=== PATIENT | female | born 1945 | race Caucasian/White ===

== ENCOUNTER 2016-09-16 11:17 | Inpatient (IN) | payer MEDICARE, OTHER ==
--- NOTE | ~2016-09-16 | DS ---
Discharge Summary [place] [id number] [place] [place]. [address] NAME: SUSY HAGEN : 49 STATUS : DIS IN PAT#: [id number] AGE: 71 ADM/REG DATE : 09/16/16 MR#: [id number] REPORT SERV DATE: 09/19/16 DICTATED BY: BEN GRANDA DATE: 09/18/16 REPORT STATUS : Draft TRANSCRIBED BY: MODL DATE: 09/18/16 ADMISSION DATE: 09/16/2016 DISCHARGE DATE: 09/18/2016 CHIEF COMPLAINT: Shortness of breath. DISCHARGING DIAGNOSES: 1. Suspected ovarian cancer. 2. Right pleural effusion. 3. Malignant ascites, status post paracentesis. 4. Hypertension. HISTORY OF PRESENT ILLNESS: Please see full H and P for details regarding initial presentation. HOSPITAL COURSE: 1. Suspected ovarian cancer. The patient presented with ascites and imaging consistent with ovarian cancer. She had a CA-125 of 5865. 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 She was seen by Dr. Olivas and Dr. Blanco from [facility]. The plan at this point is to have her follow up in our office next week for surgery planning. She feels better after ascites was drained. She opted not to have the thoracentesis at this time to see if her pleural fluid did improve after ascites was drained. 2. Hypertension. The patient is controlled on her home medications. No changes were made. PERTINENT IMAGING THIS ADMISSION: 1. CT of the abdomen and pelvis, impression, the patient has extensive ascites with omental thickening and apparent soft tissue masses in both adnexa. Findings are highly suspicious for metastatic ovarian carcinoma. 2. Moderate right pleural effusion and small left pleural effusion with consolidation at the lung bases, right greater than left. 3. Extensive fatty infiltration of the liver. 4. No adenopathy identified. 5. Multiple small bilateral nonobstructing kidney stones. Both kidneys are mildly atrophic. 6. Uterine fibroid measuring 4 cm with peripheral calcification. PROCEDURES THIS ADMISSION: Paracentesis performed on day of admission with drainage of 4.2 L. PERTINENT LABORATORY DATA: Prior to discharge, white blood cell count 11.4, hemoglobin 11.5, platelet count of 380. BMP grossly unremarkable. Time spent on discharge including discussion with Dr. Blanco as well as the patient's family is greater than 30 minutes. Discharge Summary [address] [place]. [address] NAME: SUSY HAGEN : 49 STATUS : DIS IN PAT#: [id number] AGE: 71 ADM/REG DATE : 09/16/16 MR#: [id number] REPORT SERV DATE: 09/19/16 DICTATED BY: BEN GRANDA DATE: 09/18/16 REPORT STATUS : Draft TRANSCRIBED BY: MARSHA DATE: 09/18/16 BREANNAK/MARSHA Ben Granda MD / [id number] CC: Ben Granda MD
--- NOTE | ~2016-09-16 | CN ---
Consultation Report [facility] [address] [place]. [address] NAME: SUSY WALKER : 49 STATUS : ADM IN PAT#: [id number] AGE: 71 ADM/REG DATE : 09/16/16 MR#: [id number] REPORT SERV DATE: 09/17/16 DICTATED BY: CHAI ARAIZA DATE: 09/17/16 REPORT STATUS : Draft TRANSCRIBED BY: MODL DATE: 09/17/16 CONSULTATION NOTE DATE OF CONSULTATION: 09/17/2016 REASON FOR CONSULTATION: Ascites, elevated CA-125, carcinomatosis. HISTORY OF PRESENT ILLNESS: Ms. Walker is a delightful 71-year-old female, who started having reflux symptoms several months ago. She had a history of hiatal hernia that was repaired in the past. She has been having early satiety and abdominal fullness that has been increasing in severity over the past two weeks, and she came to the ER for an evaluation. PAST MEDICAL HISTORY: Hypertension, hyperlipidemia, history of umbilical hernia repair, occasional migraines. PAST SURGICAL HISTORY: Dionna fundoplication, ventral hernia repair with mesh, and oral surgery. FAMILY HISTORY: She has a brother with colon cancer, who got chemo and surgery last year and a mother who of breast cancer at the age of 50, she was diagnosed at 49. SOCIAL HISTORY: Negative for tobacco, alcohol, or illicit drug use. HOME MEDICATIONS: Excedrin migraine, calcium carbonate, Advil, simvastatin, Zomig for migraines, and Diovan. REVIEW OF SYSTEMS: Significant for early satiety, abdominal fullness. She denies any nausea, vomiting. She is able to have bowel movements and able to tolerate food. She does have occasional shortness of breath but no chest pain. No swelling in her extremities. PHYSICAL EXAMINATION: VITAL SIGNS: She is afebrile. Her vital signs are within normal limits. HEENT: Normocephalic, atraumatic. HEART: Regular rate and rhythm. LUNGS: Clear to auscultation bilaterally. ABDOMEN: Somewhat distended with a fluid wave. She had a paracentesis yesterday, says she is much less distended than she was when she came in per her report. EXTREMITIES: No clubbing, cyanosis, or edema. PELVIC: Exam was deferred for the moment. LABORATORY EVALUATION: White count 11.4, hemoglobin is 11.5, platelets were 380. Creatinine is 0.4. Albumin is 2.1, AST and ALT within normal limits. Her CA-125 was elevated at 5865. Consultation Report [place] [id number] [facility] [address] NAME: SUSY WALKER : 49 STATUS : ADM IN PAT#: [id number] AGE: 71 ADM/REG DATE : 09/16/16 MR#: [id number] REPORT SERV DATE: 09/17/16 DICTATED BY: CHAI ARAIZA DATE: 09/17/16 REPORT STATUS : Draft TRANSCRIBED BY: MODL DATE: 09/17/16 Her CEA was 0.8. TSH was normal. IMAGING STUDIES: Her CT scan revealed diffuse omental thickening with no retroperitoneal adenopathy. There was a moderate right pleural effusion. The omental thickening extended into the abdominal wall hernia. All of her solid organs were free of metastatic disease. She did have diffuse fatty infiltration of her liver. She had soft tissue densities in the bilateral adnexa with a 4 cm uterine fibroid. ASSESSMENT AND PLAN: Going forward, I discussed that the high probability that this represented ovarian malignancy. Treatment options were discussed including primary cytoreductive surgery. Risks and benefits of that procedure were discussed in detail. This will be followed by adjuvant chemotherapy with a gulkana and taxane agent. Additional options would include neoadjuvant chemotherapy, following confirmation of malignancy and paracentesis, followed by interval debulking surgery. The patient seems to be in good physical shape. The only hesitation would be her albumin at 2.1, but I think she would tolerate a primary cytoreductive procedure. She will think about her options going forward and let us know how she wants to proceed, but our recommendation would be for primary cytoreductive surgery probably early next week. Thank you very much for this consultation. PAULO/MARSHA Chai Araiza MD / [id number]
--- NOTE | ~2016-09-16 | HP ---
History And Physical [place] [id number] [facility] [place]. [address] NAME: SUSY HAGEN : 49 STATUS : ADM IN PAT#: [id number] AGE: 71 ADM/REG DATE : 09/16/16 MR#: [id number] REPORT SERV DATE: 09/16/16 DICTATED BY: BEN GRANDA DATE: 09/16/16 REPORT STATUS : Draft TRANSCRIBED BY: MODL DATE: 09/16/16 DATE OF ADMISSION: 09/16/2016 CHIEF COMPLAINT: Shortness of breath. HISTORY OF PRESENT ILLNESS: This is a very pleasant 71-year-old female, who reports that she, several months ago, started having reflux symptoms. She has a history of a Dionna fundoplication and thought may be her hiatal hernia was recurring. Then over the past couple of months, she says she noted that she would be hungry but only able to eat a little bit before feeling like she has eaten a Thanksgiving dinner. She says she is not sure if she has lost weight but family in the room says that they can tell she has, despite her abdomen appearing more full. The patient notes that she had a fall a couple of months ago and did go to her primary care doctor and had noted rib fractures. She otherwise had started having some abdominal fullness about two weeks ago to may be a month ago. She said her abdomen will be more full which was causing her to be more short of breath. Initially she thought the shortness of breath was all part of the hiatal hernia which she has had and her initial issues with hiatal hernia which she had repaired in 2010. However last night, she would lay down to go to bed and felt like she could not breathe and had to sit up to catch her breath. This morning, she woke up, took a shower, and decided to seek medical attention. Of note, her fall involved slipping in the room. She did not pass out or have other issues. REVIEW OF SYSTEMS: Full review of systems was obtained and is negative with the exception of above HPI. PAST MEDICAL HISTORY: Includes hypertension, hyperlipidemia, history of umbilical hernia repair, history of Dionna fundoplication, and occasional migraines. FAMILY HISTORY: Includes a brother with colon cancer and mother who at age 50 of breast cancer. The patient thinks her mother was diagnosed around age 47. SOCIAL HISTORY: Denies smoking, drinking. She is retired and lives alone. HOME MEDICATIONS: Excedrin Migraine p.r.n.; calcium carbonate p.r.n.; Advil p.r.n.; simvastatin 40 mg daily; Zomig p.r.n. for migraines; and Diovan 320/25 daily. PHYSICAL EXAMINATION: VITAL SIGNS: Temperature 98.3, blood pressure 143/70 with pulse of 99, respiratory rate of 16, and saturating 97% on room air. GENERAL: This is a well-developed, well-nourished female, who is in no acute distress. She is alert and oriented x3. HEENT: Extraocular muscles are intact. Sclerae anicteric. Mucous membranes are mildly dry. LUNGS: Clear to auscultation although diminished at the right base. She does not have any wheezes, rales, or rhonchi. She has normal respiratory effort. Resting in stretcher. CARDIOVASCULAR: No murmur appreciated. Heart rate is slightly tachycardic. ABDOMEN: Distended. Nontender to palpation. History And Physical [address] [address] NAME: SUSY HAGEN : 49 STATUS : ADM IN [facility]#: [id number] AGE: 71 ADM/REG DATE : 09/16/16 MR#: [id number] REPORT SERV DATE: 09/16/16 DICTATED BY: BEN GRANDA DATE: 09/16/16 REPORT STATUS : Draft TRANSCRIBED BY: MARSHA DATE: 09/16/16 EXTREMITIES: Lower extremities are warm and well perfused with no edema. SKIN: Warm, dry, and intact. NEUROLOGIC: Cranial nerves 2 through 12 are grossly intact. Face is symmetric. Tongue is midline. Speech is fluent. LABORATORY DATA: Serum sodium 146, potassium 3.5, chloride 106, CO2 of 32, BUN 33, creatinine 0.59, glucose 105, calcium 8.6, mag 2.5, albumin 2.2, and bilirubin normal. White blood cell count 13.9, hemoglobin 13.8, platelet count of 463. IMAGING: Impression: 1. The patient has extensive ascites with omental thickening and apparent soft-tissue masses in both adnexa. The findings are highly suspicious for metastatic ovarian cancer. 2. Moderate right pleural effusion, small left pleural effusion with consolidation at the lung bases, right greater than left. 3. Extensive infiltration of the liver. 4. No adenopathy identified. 5. Multiple small bilateral nonobstructing kidney stones, both kidneys are mildly atrophic. 6. Uterine fibroid measuring 4 cm with peripheral calcification. ASSESSMENT AND PLAN: This is a 71-year-old female with abdominal imaging concerning for possible ovarian cancer. 1. Adnexal masses with ascites and omental thickening concerning for a new diagnosis of ovarian cancer. We will get a paracentesis and send fluid for cytology. I will check a CA-125. In the interim, I will ask one of our [facility] physicians to do another workup needed at this time. Suspect the patient will have a 2 midnight stay. We will admit as an inpatient. We will arrange for outpatient followup if [facility] does not see her while she is here. 2. Shortness of breath due to abdominal distention as well as pleural effusion. If the patient does not feel better after a paracentesis, we will arrange for thoracentesis prior to discharge. 3. History of hypertension. We will have the patient's home medications available with parameters. 4. History of hyperlipidemia. Continue the patient's statin. 5. Code status is full code per the patient's wishes. 6. DVT prophylaxis will be with SCDs pending possible paracentesis. BREANNAK/MAIKL Ben Granda MD / [id number] History And Physical [address] [address] NAME: SUSY HAGEN BOGDAN : 49 STATUS : ADM IN PAT#: [id number] AGE: 71 ADM/REG DATE : 09/16/16 MR#: [id number] REPORT SERV DATE: 09/16/16 DICTATED BY: BEN GRANDA DATE: 09/16/16 REPORT STATUS : Draft TRANSCRIBED BY: MODL DATE: 09/16/16 CC: Ben Granda MD
[2016-09-16 10:40] LABS: BASOPHILS 0.1 %; BASOPHILS ABSOLUTE 0.01 10/3/uL (0.0-0.16); EOSINOPHILS 1.2 %; EOSINOPHILS ABSOLUTE 0.16 10/3/uL (0.0-0.53); ER CBC TAT 0 Hrs 08 Mins; HEMATOCRIT 42.4 % (36.0-48.0); HEMOGLOBIN 13.8 g/dL (12.0-16.0); IMMATURE GRANULOCYTES 0.2 %; IMMATURE GRANULOCYTES ABSOLUTE 0.03 10/3/uL (0.0-0.11); LYMPHOCYTES 7.6 %; LYMPHOCYTES ABSOLUTE 1.05 10/3/uL (0.67-4.30); MEAN CORPUS HGB CONC 32.5 g/dL (32.0-36.0); MEAN CORPUSCULAR HEMOGLOB 27.7 pg (26.0-34.0); MEAN PLATELET VOLUME 9.1 fL (9.2-13.0); MONOCYTES 7.4 %; MONOCYTES ABSOLUTE 1.03 10/3/uL (0.21-1.20); NEUTROPHILS 83.5 %; NEUTROPHILS ABSOLUTE 11.62 10/3/uL (2.02-8.40); PLATELET COUNT 463 10/3/uL (150-400); RBC DISTRIBUTION WIDTH 16.3 % (12.0-16.0); RED CELL COUNT 4.99 10/6/uL (4.0-5.6); WHITE BLOOD CELLS 13.9 10/3/uL (4.5-10.5)
[2016-09-16 10:41] LABS: MANUAL DIFF NO %
[2016-09-16 10:56] LABS: A/G RATIO 0.5 (0.7-1.9); ALBUMIN 2.2 G/DL (3.5-5.0); ALKALINE PHOSPHATASE 118 U/L (45-117); BUN (BLOOD UREA NITROGEN) 33 MG/DL (6-23); CALCIUM, SERUM 8.6 MG/DL (8.5-10.4); CHLORIDE, SERUM 106 MMOL/L (96-112); CO2 (CARBON DIOXIDE) 32 MMOL/L (24-34); CREATININE 0.59 MG/DL (0.55-1.02); GFR AFRICAN AMERICAN 108 ML/MIN (>=60); GFR NON AFRICAN AMERICAN 94 ML/MIN (>=60); GLOBULIN 4.4 G/DL (2.5-4.1); GLUCOSE, SERUM 105 MG/DL (60-99); POTASSIUM, SERUM 3.5 MMOL/L (3.5-5.3); SGOT(AST) 22 U/L (5-40); SGPT(ALT) 23 U/L (5-65); SODIUM, SERUM 146 MMOL/L (135-148); TOTAL BILIRUBIN 0.4 MG/DL (0-1.2); TOTAL PROTEIN 6.6 G/DL (6.0-8.5)
[~2016-09-16 11:17] MED LIST: DIOVAN HC2 PO; ENTEREG12 MG PO; PRILOSEC OTC20 MG PO
[2016-09-16 13:22] LABS: ASCORBIC ACID (UR NOT ORDER) 40 (NEG); BILIRUBIN, URINE NEGATIVE (NEG); KETONE, URINE 20 MG/DL (NEG); LEUKOCYTE ESTERASE(NOT OR NEG (NEG); NITRITE (URINE) NEG (NEG); WBC (NOT ORDERED) (RFLEX) 8 (0-5)
[2016-09-16 13:23] LABS: ER URINALYSIS TAT 0 Hrs 42 Mins
[2016-09-16] MEDS ORDERED: EXCEDRIN EXTRA1 EACH PO (14:10)
[2016-09-16] MEDS ORDERED: ADVIL PO (14:12)
[2016-09-16] MEDS ORDERED: TUMS E-X750 M2 PO (14:13)
[2016-09-16] MEDS ORDERED: ZOCOR40 PO (14:20)
[2016-09-16] MEDS ORDERED: DIOVAN HCT320 MG/25 PO (14:20)
[2016-09-16] MEDS ORDERED: ZOMIG 5MG PO (14:21)
[2016-09-16 16:09] LABS: INTERNATIONAL NORMAL RATI 1.1 UNITS (-); PARTIAL THROMBO TIME 26.6 SEC (22.5-37.2); PROTIME (NOT ORD) 13.6 SEC (12.0-14.5)
[2016-09-16 16:14] LABS: ALBUMIN 2.1 G/DL (3.5-5.0); TOTAL PROTEIN 6.1 G/DL (6.0-8.5)
[2016-09-17 05:45] LABS: BASOPHILS 0 %; EOSINOPHILS ABSOLUTE 0.11 10/3/uL (0.0-0.53); HEMOGLOBIN 11.5 g/dL (12.0-16.0); IMMATURE GRANULOCYTES 0.3 %; IMMATURE GRANULOCYTES ABSOLUTE 0.03 10/3/uL (0.0-0.11); LYMPHOCYTES 9.7 %; MEAN CORPUS HGB CONC 31.1 g/dL (32.0-36.0); MEAN CORPUSCULAR HEMOGLOB 26.7 pg (26.0-34.0); MEAN CORPUSCULAR VOLUME 85.8 fL (80-100); MEAN PLATELET VOLUME 9.3 fL (9.2-13.0); MONOCYTES 7.9 %; NEUTROPHILS 81.1 %; NEUTROPHILS ABSOLUTE 9.24 10/3/uL (2.02-8.40); PLATELET COUNT 380 10/3/uL (150-400); RBC DISTRIBUTION WIDTH 16.6 % (12.0-16.0); RED CELL COUNT 4.31 10/6/uL (4.0-5.6); WHITE BLOOD CELLS 11.4 10/3/uL (4.5-10.5)
[2016-09-17 06:02] LABS: MANUAL DIFF NO %
[2016-09-17 06:26] LABS: BUN (BLOOD UREA NITROGEN) 36 MG/DL (6-23); CA 125 II 5865.8 U/ML (< 35.0); CALCIUM, SERUM 7.9 MG/DL (8.5-10.4); CHLORIDE, SERUM 111 MMOL/L (96-112); CREATININE 0.47 MG/DL (0.55-1.02); GFR AFRICAN AMERICAN 117 ML/MIN (>=60); GFR NON AFRICAN AMERICAN 101 ML/MIN (>=60); GLUCOSE, SERUM 87 MG/DL (60-99); POTASSIUM, SERUM 3.7 MMOL/L (3.5-5.3); SODIUM, SERUM 145 MMOL/L (135-148)
[2016-09-17 06:27] LABS: CEA 0.8 NG/ML; CO2 (CARBON DIOXIDE) 27 MMOL/L (24-34)
[2016-10-15] MEDS ORDERED: ANTIBIOTIC (12:21)
[2016-12-14] MEDS ORDERED: ZOCOR40 PO (02:18)
[2016-12-14] MEDS ORDERED: LOVENOX80 SC (02:18)
[2016-12-16] MEDS ORDERED: ZITHROMAX500 MG PO (16:52)
[2016-12-16] MEDS ORDERED: LEVAQUIN750 MG PO (16:53)
[2017-01-17] MEDS ORDERED: LOVENOX80 SC (22:05)
[2017-01-17] MEDS ORDERED: COMP10B PO (22:05)
[2017-01-17] MEDS ORDERED: ZOFRANODT8 PO (22:07)
[2017-01-17] MEDS ORDERED: PROBIOTIC PO (22:07)
[2017-01-17] MEDS ORDERED: VITAMIN B-12 PO (22:08)
[2017-01-17] MEDS ORDERED: ACET500CAP PO (22:09)
[2017-01-17] MEDS ORDERED: SENTAB PO (22:10)
[2017-01-17] MEDS ORDERED: TUMS E-X750 M2 PO (22:11)
[2017-01-17] MEDS ORDERED: CHEMOTHERAPY IV (22:12)
[2017-01-19] MEDS ORDERED: LOP25 PO (14:18)
[2017-01-20] MEDS ORDERED: ACET500CAP PO (22:12)
[2017-01-20] MEDS ORDERED: TUMS E-X750 M2 PO (22:13)
[2017-01-20] MEDS ORDERED: LOVENOX80 SC (22:13)
[2017-01-20] MEDS ORDERED: LOP25 PO (22:13)
[2017-01-20] MEDS ORDERED: COMP10B PO (22:14)
[2017-01-20] MEDS ORDERED: ZOFRANODT8 PO/SL (22:14)
[2017-01-20] MEDS ORDERED: SENTAB PO (22:15)
[2017-01-20] MEDS ORDERED: PROBIOTIC PO (22:16)
[2017-01-20] MEDS ORDERED: VITAMIN B-12 OTC PO (22:16)
[2017-01-20] MEDS ORDERED: CHEMOTHERAPY IV (22:17)
== END 2016-09-18 15:54 | disposition home or self-care (01) | DRG 755 ==
LOC: ER 11:17 → 4SO 14:13
PROVIDERS: Emergency Medicine; Internal Medicine; Radiology Diagnostic Radiology
PROC: 0W9G3ZX Drainage of Peritoneal Cavity, Percutaneous Approach, Diagnostic (ICD-10-PCS; principal; 2016-09-16)
DX: C56.9 Malignant neoplasm of unspecified ovary (principal); C79.9 Secondary malignant neoplasm of unspecified site; R18.0 Malignant ascites; J91.0 Malignant pleural effusion; K76.0 Fatty (change of) liver, not elsewhere classified; C78.6 Secondary malignant neoplasm of retroperitoneum and peritoneum; I10 Essential (primary) hypertension; K21.9 Gastro-esophageal reflux disease without esophagitis; Z87.81 Personal history of (healed) traumatic fracture; Z91.81 History of falling; E78.5 Hyperlipidemia, unspecified; Z98.890 Other specified postprocedural states; N20.0 Calculus of kidney; D25.9 Leiomyoma of uterus, unspecified
CPT/HCPCS: 49083; 71010; 74176; 80048; 80053; 81001; 82040; 82150; 82378; 83690; 84155; 85025; 85049; 85610; 85730; 86304; 88112; 88305; 93005; 96374; 96375; 99285; A9270-GY; J1170; J2405; J2550

== ENCOUNTER 2016-09-23 17:23 | Inpatient (IN) | payer MEDICARE, OTHER ==
--- NOTE | ~2016-09-23 | HP ---
History And Physical [place] [address] [facility] [place] [place]. [address] NAME: SUSY WALKER : 49 STATUS : DIS IN PAT#: [id number] AGE: 71 ADM/REG DATE : 09/23/16 MR#: [id number] REPORT SERV DATE: 11/02/16 DICTATED BY: MADHU MCDANIEL DATE: 11/02/16 REPORT STATUS : Draft TRANSCRIBED BY: MARSHA DATE: 11/02/16 DATE OF ADMISSION: 09/23/2016 ADMITTING DIAGNOSES: 1. Primary peritoneal carcinoma. 2. Deep venous thrombosis and pulmonary embolism. HISTORY OF PRESENT ILLNESS: Ms June Walker is a 71-year-old female, who was recently admitted to [facility], secondary to increasing abdominal pain and distention. A biopsy has been performed and was consistent with a primary peritoneal carcinoma. She was intending to have surgery and recently presented to the office with complaint of increasing shortness of breath, and pain in her lower extremities, and has now been found to have a DVT with PE. She is admitted for Lovenox. PAST MEDICAL HISTORY: Consistent with hyperlipidemia and hypertension. CURRENT MEDICATIONS: Zocor and Diovan/HCTZ. PAST SURGICAL HISTORY: Negative. SOCIAL HISTORY: Negative for any tobacco, alcohol, or illicit drug use. PHYSICAL EXAMINATION: GENERAL: She is awake, alert, and oriented x3, with intact memory, and appears to be in no apparent distress. She does have some mild shortness of breath. LUNGS: Clear to auscultation bilaterally. HEART: Regular rate and rhythm without abnormal noises. ABDOMEN: Soft, nontender, with no palpable masses. EXTREMITIES: Both upper and lower have full range of motion with some swelling in her lower extremities consistent with her DVT. NEUROLOGIC: Intact. HEENT: Reveals no gross defects. Her extraocular movements are symmetrical and intact. BACK: Straight spine without CVA tenderness. ASSESSMENT AND PLAN: In summary, this is a 71-year-old female, who was recently been diagnosed with primary peritoneal carcinoma. She now has a new DVT/PE. She is placed on to the Lovenox and the risks and benefits of Lovenox therapy was discussed and she has given her consent to proceed. MARISSA/MARSHA Madhu Mcdaniel M.D. History And Physical [address] [place] [address] NAME: SUSY WALKER : 49 STATUS : DIS IN PAT#: [id number] AGE: 71 ADM/REG DATE : 09/23/16 MR#: [id number] REPORT SERV DATE: 11/02/16 DICTATED BY: MADHU MCDANIEL DATE: 11/02/16 REPORT STATUS : Draft TRANSCRIBED BY: MAIKL DATE: 11/02/16 / [id number] CC: Madhu Mcdaniel M.D.
--- NOTE | ~2016-09-23 | OP ---
Record Of Operation [facility] [address] [place]. [address] NAME: SUSY HAGEN : 49 STATUS : ADM IN PAT#: [id number] AGE: 71 ADM/REG DATE : 09/23/16 MR#: [id number] REPORT SERV DATE: 09/25/16 DICTATED BY: ELBA PLATT DATE: 09/25/16 REPORT STATUS : Draft TRANSCRIBED BY: MODL DATE: 09/25/16 DATE OF PROCEDURE: 09/25/2016 ATTENDING SURGEON: Elba Platt MD RODENT EXTERMINATOR: None. PREPROCEDURE DIAGNOSIS: Cancer. POSTPROCEDURE DIAGNOSIS: Cancer. PROCEDURE PERFORMED: Placement of right IJ Port-A-Cath under fluoroscopic and ultrasound guidance. ANESTHETIC: MAC and local. SPECIMENS: None. ESTIMATED BLOOD LOSS: Minimal. COMPLICATIONS: None. DESCRIPTION OF PROCEDURE: The patient was brought to the operating room, placed in supine position on the operating room table. The patient had MAC anesthetic without complications. The right neck and chest were prepped and draped in sterile fashion. A time-out was performed. Identified the correct patient, procedure, and site. We began by using ultrasound to identify the right IJ vein. It was patent, compressible, and free of thrombus. We anesthetized the skin and accessed the vein under ultrasound guidance. Once we had access, a wire was passed down through the SVC and cardiac chambers into the IVC and the needle was removed. We next selected a site for the port one fingerbreadth below the clavicle. We anesthetized the skin and subcutaneous tissues at this location and made a transverse incision just inferior to the clavicle. We deepened this incision with cautery and made a pocket for the port with both electric and blunt dissection. We then tunneled the catheter from this location up to the neck entry site. We then advanced a hernandez breakaway sheath over the wire into position under fluoroscopy after which the dilator and wire were removed. We inserted the catheter into the sheath and placed it in position in the cardiac chambers. The sheath was split and removed while keeping the catheter in place. The catheter flushed and aspirated with ease and was withdrawn until the tip was at the atriocaval junction. Once the tip was in appropriate position, the port was brought up and sutured medially and laterally with interrupted Prolene suture. The catheter was trimmed. The locking mechanism was placed on a catheter and the catheter was mated to the port body. We then used a straight Farah needle to make sure the system flushed and aspirated well and it did. The catheter was then locked into position with the appropriate locking device. The port was placed in the pocket and sutured medially and laterally with the Prolenes that were priorly placed. We used a straight Farah needle again to access the port through the skin and it worked appropriately. Final x-ray was performed, demonstrating good position of Record Of Operation [address] [place]. [address] NAME: SUSY HAGEN : 49 STATUS : ADM IN PAT#: [id number] AGE: 71 ADM/REG DATE : 09/23/16 MR#: [id number] REPORT SERV DATE: 09/25/16 DICTATED BY: ELBA PLATT DATE: 09/25/16 REPORT STATUS : Draft TRANSCRIBED BY: MARSHA DATE: 09/25/16 the port and catheter with no kink in the catheter and no pneumothorax identified. The incision was then closed with interrupted Vicryl deep and subcuticular 4-0 Monocryl superficial with Dermabond on the skin. The neck entry site was closed with interrupted Monocryl and Dermabond. The patient tolerated the procedure well. She was awakened and transferred to recovery in stable condition. NEYMAR/MARSHA Elba Platt MD / [id number] CC: Madhu Blanco M.D.
[~2016-09-23 17:23] MED LIST changes: +ADVIL PO; +DIOVAN HCT320 MG/25 PO; +EXCEDRIN EXTRA1 EACH PO; +TUMS E-X750 M2 PO; +ZOCOR40 PO; +ZOMIG 5MG PO
[2016-09-23 19:08] LABS: BASOPHILS 0.1 %; BASOPHILS ABSOLUTE 0.02 10/3/uL (0.0-0.16); EOSINOPHILS 1.2 %; EOSINOPHILS ABSOLUTE 0.17 10/3/uL (0.0-0.53); HEMATOCRIT 40.5 % (36.0-48.0); HEMOGLOBIN 13.2 g/dL (12.0-16.0); IMMATURE GRANULOCYTES 0.4 %; IMMATURE GRANULOCYTES ABSOLUTE 0.05 10/3/uL (0.0-0.11); LYMPHOCYTES 10.5 %; LYMPHOCYTES ABSOLUTE 1.43 10/3/uL (0.67-4.30); MANUAL DIFF NO %; MEAN CORPUS HGB CONC 32.6 g/dL (32.0-36.0); MEAN CORPUSCULAR HEMOGLOB 27.7 pg (26.0-34.0); MEAN CORPUSCULAR VOLUME 85.1 fL (80-100); MEAN PLATELET VOLUME 8.9 fL (9.2-13.0); MONOCYTES 6.2 %; MONOCYTES ABSOLUTE 0.84 10/3/uL (0.21-1.20); NEUTROPHILS 81.6 %; PLATELET COUNT 469 10/3/uL (150-400); RBC DISTRIBUTION WIDTH 16.7 % (12.0-16.0); RED CELL COUNT 4.76 10/6/uL (4.0-5.6); WHITE BLOOD CELLS 13.6 10/3/uL (4.5-10.5)
[2016-09-23 19:11] LABS: PROTIME (NOT ORD) 13.1 SEC (12.0-14.5)
[2016-09-23 19:12] LABS: A/G RATIO 0.4 (0.7-1.9); ALBUMIN 1.9 G/DL (3.5-5.0); BUN (BLOOD UREA NITROGEN) 26 MG/DL (6-23); CALCIUM, SERUM 8.8 MG/DL (8.5-10.4); CHLORIDE, SERUM 104 MMOL/L (96-112); CO2 (CARBON DIOXIDE) 31 MMOL/L (24-34); CREATININE 0.62 MG/DL (0.55-1.02); GFR AFRICAN AMERICAN 107 ML/MIN (>=60); GFR NON AFRICAN AMERICAN 92 ML/MIN (>=60); GLOBULIN 4.4 G/DL (2.5-4.1); GLUCOSE, SERUM 99 MG/DL (60-99); SGPT(ALT) 24 U/L (5-65); SODIUM, SERUM 142 MMOL/L (135-148); TOTAL BILIRUBIN 0.3 MG/DL (0-1.2); TOTAL PROTEIN 6.3 G/DL (6.0-8.5)
[2016-09-23 19:13] LABS: ALKALINE PHOSPHATASE 137 U/L (45-117); POTASSIUM, SERUM 3.8 MMOL/L (3.5-5.3); SGOT(AST) 35 U/L (5-40)
[2016-09-25] MEDS ORDERED: LOVENOX80 SC (12:54)
[2016-09-25] MEDS ORDERED: ZOFRAN8 PO (12:55)
[2016-09-25] MEDS ORDERED: DEX4 (12:58)
[2016-09-25] MEDS ORDERED: COMP10B PO (12:59)
[2016-09-25] MEDS ORDERED: PROTONIX PO (12:59)
[2016-10-15] MEDS ORDERED: ANTIBIOTIC (12:21)
[2016-12-14] MEDS ORDERED: ZOCOR40 PO (02:18)
[2016-12-14] MEDS ORDERED: LOVENOX80 SC (02:18)
[2016-12-16] MEDS ORDERED: ZITHROMAX500 MG PO (16:52)
[2016-12-16] MEDS ORDERED: LEVAQUIN750 MG PO (16:53)
[2017-01-17] MEDS ORDERED: COMP10B PO (22:05)
[2017-01-17] MEDS ORDERED: LOVENOX80 SC (22:05)
[2017-01-17] MEDS ORDERED: ZOFRANODT8 PO (22:07)
[2017-01-17] MEDS ORDERED: PROBIOTIC PO (22:07)
[2017-01-17] MEDS ORDERED: VITAMIN B-12 PO (22:08)
[2017-01-17] MEDS ORDERED: ACET500CAP PO (22:09)
[2017-01-17] MEDS ORDERED: SENTAB PO (22:10)
[2017-01-17] MEDS ORDERED: TUMS E-X750 M2 PO (22:11)
[2017-01-17] MEDS ORDERED: CHEMOTHERAPY IV (22:12)
[2017-01-19] MEDS ORDERED: LOP25 PO (14:18)
[2017-01-20] MEDS ORDERED: ACET500CAP PO (22:12)
[2017-01-20] MEDS ORDERED: LOP25 PO (22:13)
[2017-01-20] MEDS ORDERED: LOVENOX80 SC (22:13)
[2017-01-20] MEDS ORDERED: TUMS E-X750 M2 PO (22:13)
[2017-01-20] MEDS ORDERED: ZOFRANODT8 PO/SL (22:14)
[2017-01-20] MEDS ORDERED: COMP10B PO (22:14)
[2017-01-20] MEDS ORDERED: SENTAB PO (22:15)
[2017-01-20] MEDS ORDERED: PROBIOTIC PO (22:16)
[2017-01-20] MEDS ORDERED: VITAMIN B-12 OTC PO (22:16)
[2017-01-20] MEDS ORDERED: CHEMOTHERAPY IV (22:17)
== END 2016-09-25 18:33 | disposition home or self-care (01) | DRG 374 ==
LOC: 4SO 17:23
PROVIDERS: Obstetrics & Gynecology Gynecologic Oncology; Student in an Organized Health Care Education/Training Program
PROC: 0JH60WZ Insertion of Totally Implantable Vascular Access Device into Chest Subcutaneous Tissue and Fascia, Open Approach (ICD-10-PCS; principal; 2016-09-25 07:45)
PROC: B5131ZA Fluoroscopy of Right Jugular Veins using Low Osmolar Contrast, Guidance (ICD-10-PCS; principal; 2016-09-25 07:45)
PROC: 05HM33Z Insertion of Infusion Device into Right Internal Jugular Vein, Percutaneous Approach (ICD-10-PCS; principal; 2016-09-25 07:45)
DX: C48.2 Malignant neoplasm of peritoneum, unspecified (principal); I26.99 Other pulmonary embolism without acute cor pulmonale; C56.9 Malignant neoplasm of unspecified ovary; R18.8 Other ascites; I82.409 Acute embolism and thrombosis of unspecified deep veins of unspecified lower extremity; Z79.02 Long term (current) use of antithrombotics/antiplatelets; I10 Essential (primary) hypertension; K21.9 Gastro-esophageal reflux disease without esophagitis
CPT/HCPCS: 36561; 71275; 77001; 80053; 85025; 85610; 93005; A9270-GY; C1751; C1769; J0690; J2250; J2405; J3010; Q9966; Q9967

== ENCOUNTER 2016-09-27 19:10 | Inpatient (IN) | payer MEDICARE, OTHER ==
--- NOTE | ~2016-09-27 | HP ---
History And Physical [place] [address] [place]. [address] NAME: ALEJA WALKER : 49 STATUS : DIS IN PAT#: [id number] AGE: 71 ADM/REG DATE : 09/29/16 MR#: [id number] REPORT SERV DATE: 11/02/16 DICTATED BY: MADHU MCDANIEL DATE: 11/02/16 REPORT STATUS : Draft TRANSCRIBED BY: MODTim DATE: 11/02/16 DATE OF ADMISSION: 09/27/2016 ADMITTING DIAGNOSES: 1. Primary peritoneal carcinoma. 2. New diagnosis of deep venous thrombosis/pulmonary embolism. 3. Shortness of breath. HISTORY OF PRESENT ILLNESS: Ms. Aleja Walker is a 71-year-old female who has recently been diagnosed with primary peritoneal carcinoma as well as DVT/PE. She has recently been discharged with Lovenox therapy and now presents again with increasing shortness of breath with abdominal distention. During the past several days, her abdominal ascites has increased significantly. We will plan to perform a paracentesis. She may need additional procedures pending her symptoms. PAST MEDICAL HISTORY: Consistent with hyperlipidemia and hypertension. MEDICATIONS: Current medications include Zocor/Diovan and hydrochlorothiazide. PAST SURGICAL HISTORY: Placement of a Port-A-Cath. SOCIAL HISTORY: Negative for any tobacco, alcohol, or illicit drug use. PHYSICAL EXAMINATION: GENERAL: On physical exam, she is awake, alert, and oriented x3 with intact memory and appears to be in no apparent distress. HEENT: Reveals no gross defects. Her extraocular movements are symmetrical and intact. Ears and nose are without defects or lesions. LUNGS: Clear to auscultation bilaterally. CARDIAC: Her heart has a regular rate and rhythm without abnormal noises. ABDOMEN: Distended and consistent with ascites from her primary peritoneal carcinoma. EXTREMITIES: Swelling in the lower extremities. Her upper extremities have full range of motion. No clubbing, varicosities, or edema. ASSESSMENT AND PLAN: In summary, this is a 71-year-old female who has recently been diagnosed with primary peritoneal carcinoma, who also has a new diagnosis of deep venous thrombosis/pulmonary embolism. We will perform a paracentesis and we will consider initiating her chemotherapy. The risks and benefits of these procedures have been discussed in detail, and she has given her consent to proceed. MARISSA/MARSHA Madhu Mcdaniel M.D. History And Physical [address] [address] NAME: ALEJA WALKER : 49 STATUS : DIS IN PAT#: [id number] AGE: 71 ADM/REG DATE : 09/29/16 MR#: [id number] REPORT SERV DATE: 11/02/16 DICTATED BY: MADHU MCDANIEL DATE: 11/02/16 REPORT STATUS : Draft TRANSCRIBED BY: MARSHA DATE: 11/02/16 / [id number]
[~2016-09-27 19:10] MED LIST changes: +COMP10B PO; +DEX4; +LOVENOX80 SC; +PROTONIX PO; +ZOFRAN8 PO
[2016-09-27] MEDS ORDERED: T PO (20:12)
[2016-09-27] MEDS ORDERED: [UNRECOGNIZED DRUG - OTHER] PO (20:18)
[2016-09-27 21:04] LABS: BASOPHILS 0.1 %; BASOPHILS ABSOLUTE 0.01 10/3/uL (0.0-0.16); EOSINOPHILS 1.9 %; EOSINOPHILS ABSOLUTE 0.23 10/3/uL (0.0-0.53); HEMATOCRIT 36.6 % (36.0-48.0); HEMOGLOBIN 12.2 g/dL (12.0-16.0); IMMATURE GRANULOCYTES 0.3 %; IMMATURE GRANULOCYTES ABSOLUTE 0.03 10/3/uL (0.0-0.11); LYMPHOCYTES 13.6 %; LYMPHOCYTES ABSOLUTE 1.61 10/3/uL (0.67-4.30); MEAN CORPUS HGB CONC 33.3 g/dL (32.0-36.0); MEAN CORPUSCULAR HEMOGLOB 27.9 pg (26.0-34.0); MEAN CORPUSCULAR VOLUME 83.6 fL (80-100); MEAN PLATELET VOLUME 8.7 fL (9.2-13.0); MONOCYTES 6.3 %; MONOCYTES ABSOLUTE 0.74 10/3/uL (0.21-1.20); NEUTROPHILS 77.8 %; NEUTROPHILS ABSOLUTE 9.22 10/3/uL (2.02-8.40); PLATELET COUNT 523 10/3/uL (150-400); RBC DISTRIBUTION WIDTH 16.9 % (12.0-16.0); RED CELL COUNT 4.38 10/6/uL (4.0-5.6); WHITE BLOOD CELLS 11.8 10/3/uL (4.5-10.5)
[2016-09-27 21:05] LABS: MANUAL DIFF NO %
[2016-09-27 21:18] LABS: A/G RATIO 0.5 (0.7-1.9); ALBUMIN 1.8 G/DL (3.5-5.0); CALCIUM, SERUM 8.6 MG/DL (8.5-10.4); CHLORIDE, SERUM 103 MMOL/L (96-112); CO2 (CARBON DIOXIDE) 31 MMOL/L (24-34); CREATININE 0.41 MG/DL (0.55-1.02); GFR AFRICAN AMERICAN 122 ML/MIN (>=60); GFR NON AFRICAN AMERICAN 105 ML/MIN (>=60); GLOBULIN 3.6 G/DL (2.5-4.1); GLUCOSE, SERUM 84 MG/DL (60-99); POTASSIUM, SERUM 3.4 MMOL/L (3.5-5.3); SGOT(AST) 69 U/L (5-40); SGPT(ALT) 48 U/L (5-65); SODIUM, SERUM 142 MMOL/L (135-148); TOTAL BILIRUBIN 0.2 MG/DL (0-1.2); TOTAL PROTEIN 5.4 G/DL (6.0-8.5)
[2016-09-27 21:19] LABS: ALKALINE PHOSPHATASE 228 U/L (45-117); BUN (BLOOD UREA NITROGEN) 22 MG/DL (6-23)
[2016-09-28 07:04] LABS: INTERNATIONAL NORMAL RATI 1.1 UNITS (-); PARTIAL THROMBO TIME 34.9 SEC (22.5-37.2); PROTIME (NOT ORD) 13.8 SEC (12.0-14.5)
[2016-09-29 12:08] LABS: CA 125 II 5072.5 U/ML (< 35.0)
[2016-09-29 12:27] LABS: BUN (BLOOD UREA NITROGEN) 22 MG/DL (6-23); CALCIUM, SERUM 7.8 MG/DL (8.5-10.4); CHLORIDE, SERUM 111 MMOL/L (96-112); CREATININE 0.39 MG/DL (0.55-1.02); GFR AFRICAN AMERICAN 124 ML/MIN (>=60); GFR NON AFRICAN AMERICAN 107 ML/MIN (>=60); POTASSIUM, SERUM 3.4 MMOL/L (3.5-5.3); SODIUM, SERUM 145 MMOL/L (135-148)
[2016-09-29 12:28] LABS: CO2 (CARBON DIOXIDE) 24 MMOL/L (24-34); GLUCOSE, SERUM 107 MG/DL (60-99)
[2016-09-30] MEDS ORDERED: LOVENOX80 SC (08:32)
[2016-10-15] MEDS ORDERED: ANTIBIOTIC (12:21)
[2016-12-14] MEDS ORDERED: LOVENOX80 SC (02:18)
[2016-12-14] MEDS ORDERED: ZOCOR40 PO (02:18)
[2016-12-16] MEDS ORDERED: ZITHROMAX500 MG PO (16:52)
[2016-12-16] MEDS ORDERED: LEVAQUIN750 MG PO (16:53)
[2017-01-17] MEDS ORDERED: COMP10B PO (22:05)
[2017-01-17] MEDS ORDERED: LOVENOX80 SC (22:05)
[2017-01-17] MEDS ORDERED: ZOFRANODT8 PO (22:07)
[2017-01-17] MEDS ORDERED: PROBIOTIC PO (22:07)
[2017-01-17] MEDS ORDERED: VITAMIN B-12 PO (22:08)
[2017-01-17] MEDS ORDERED: ACET500CAP PO (22:09)
[2017-01-17] MEDS ORDERED: SENTAB PO (22:10)
[2017-01-17] MEDS ORDERED: TUMS E-X750 M2 PO (22:11)
[2017-01-17] MEDS ORDERED: CHEMOTHERAPY IV (22:12)
[2017-01-19] MEDS ORDERED: LOP25 PO (14:18)
[2017-01-20] MEDS ORDERED: ACET500CAP PO (22:12)
[2017-01-20] MEDS ORDERED: LOVENOX80 SC (22:13)
[2017-01-20] MEDS ORDERED: LOP25 PO (22:13)
[2017-01-20] MEDS ORDERED: TUMS E-X750 M2 PO (22:13)
[2017-01-20] MEDS ORDERED: COMP10B PO (22:14)
[2017-01-20] MEDS ORDERED: ZOFRANODT8 PO/SL (22:14)
[2017-01-20] MEDS ORDERED: SENTAB PO (22:15)
[2017-01-20] MEDS ORDERED: VITAMIN B-12 OTC PO (22:16)
[2017-01-20] MEDS ORDERED: PROBIOTIC PO (22:16)
[2017-01-20] MEDS ORDERED: CHEMOTHERAPY IV (22:17)
== END 2016-09-30 10:35 | disposition home or self-care (01) | DRG 847 ==
LOC: 4EA 19:10
PROVIDERS: Nurse Practitioner Family; Obstetrics & Gynecology Gynecologic Oncology
PROC: 0W993ZZ Drainage of Right Pleural Cavity, Percutaneous Approach (ICD-10-PCS; principal; 2016-09-28)
PROC: 3E03305 Introduction of Other Antineoplastic into Peripheral Vein, Percutaneous Approach (ICD-10-PCS; 2016-09-29)
DX: Z51.11 Encounter for antineoplastic chemotherapy (principal); C56.9 Malignant neoplasm of unspecified ovary; J90 Pleural effusion, not elsewhere classified
CPT/HCPCS: 32555; 71010; 71020; 80048; 80053; 85025; 85049; 85610; 85730; 86304; 88112; 88305; A9270-GY; J1200; J1453; J1720; J2405; J9045; J9267

== ENCOUNTER 2016-11-13 14:02 | Inpatient (IN) | payer MEDICARE, OTHER ==
--- NOTE | ~2016-11-13 | DS ---
Discharge Summary [facility] [address] [place]. [address] NAME: SUSY HAGEN : 49 STATUS : DIS IN PAT#: [id number] AGE: 71 ADM/REG DATE : 11/13/16 MR#: [id number] REPORT SERV DATE: 11/24/16 DICTATED BY: MADHU MCDANIEL DATE: 11/23/16 REPORT STATUS : Draft TRANSCRIBED BY: MARSHA DATE: 11/23/16 Data Collection from hospitalization DISCHARGE DIAGNOSIS(ES): 1. Progressive ovarian cancer. 2. Hypertension. 3. Hyperlipidemia. 4. History of migraine headaches. 5. History of pulmonary embolism. 6. History of Clostridium difficile. CONSULTATIONS: None. PROCEDURES PERFORMED: 1. CT of the abdomen and pelvis with contrast, 11/14/2016. 2. Paracentesis with ultrasound guidance, 11/16/2016. 3. Port-A-Cath check, 11/16/2016. MEDICATIONS: Hydrochlorothiazide 25 mg daily; Zocor 40 mg at bedtime; Diovan 320 mg daily; vitamin B complex with C one daily; Lovenox 80 mg subcutaneously twice daily; Zofran 8 mg as directed; Decadron 20 mg every 28 days on the morning of the first week of chemotherapy; Compazine 10 mg twice daily, scheduled for 3 days after chemotherapy; vitamin D one daily; Tylenol one daily as needed; Tums E-X 750 to 1500 mg daily as needed; Prilosec 20 mg daily as needed; Diovan HCT one daily; and Zomig 5 mg daily as needed. CONDITION AT DISCHARGE: Upon discharge, she did appear to be doing well and had no complaints. DISPOSITION: She was discharged home to continue a regular diet with activity as directed. She was to follow up with me as scheduled. HOSPITAL COURSE: This 71-year-old female was diagnosed with a primary peritoneal carcinoma in 09/2016. She had been receiving IV chemotherapy since that time. She was receiving dose dense Taxol and carboplatin with her last dose cycle to be on 11/09/2016. Treatment thus far had been complicated with a diagnosis of a pulmonary embolism and C. diff. She presented to the office on the day of admission with complaints of weakness, fatigue, and severe diarrhea. She stated that her diarrhea began on Wednesday. The patient had a history of C. diff in which she completed a 21 day course of vancomycin around the end of October. The patient denied any fever, chills, or any nausea or vomiting. She was however admitted for further evaluation and treatment. Upon admission to the hospital, she had been placed on a regular diet. She was begun on electrolyte protocol. She had also been placed on Lovenox at 1 mg/kg subcutaneously twice daily, Neupogen at 480 mcg subcutaneously daily, morphine 2 to 6 mg IV every two hours as needed for pain, Zofran 8 mg IV every six hours as needed for nausea. Her blood pressure medications were placed on hold. She was also begun on IV fluids with normal saline at 250 mL/h x2 hours, then it was to be decreased to 125 mL/h thereafter. Information collected by: Brigido BradfordISanketTSanket Discharge Summary [address] [address] NAME: SUSY HAGEN : 49 STATUS : DIS IN PAT#: [id number] AGE: 71 ADM/REG DATE : 11/13/16 MR#: [id number] REPORT SERV DATE: 11/24/16 DICTATED BY: MADHU MCDANIEL DATE: 11/23/16 REPORT STATUS : Draft TRANSCRIBED BY: MODL DATE: 11/23/16 I submit the above information as my discharge summary. DENISE/MARSHA Madhu Mcdaniel M.D. / [id number] CC: Alejandra Prieto M.D.
--- NOTE | ~2016-11-13 | HP ---
History And Physical [id number] [place]. [address] NAME: SUSY WALKER : 49 STATUS : ADM IN [facility]#: [id number] AGE: 71 ADM/REG DATE : 11/13/16 MR#: [id number] REPORT SERV DATE: 11/13/16 DICTATED BY: EVE GARCIA DATE: 11/13/16 REPORT STATUS : Draft TRANSCRIBED BY: MODL DATE: 11/13/16 DATE OF ADMISSION: 11/13/2016 HISTORY OF PRESENT ILLNESS: Ms. Walker is a 71-year-old female, who was diagnosed with a primary peritoneal carcinoma in 09/2016. She has been receiving IV chemotherapy since that time. She was receiving dose-dense Taxol and carboplatin with her last dose being cycle 2B on 11/09. Treatment thus far has been complicated with a diagnosis of a pulmonary embolism and C diff. The patient presented to the office today with complaints of weakness, fatigue, and severe diarrhea. States that her diarrhea started on Wednesday. The patient has a history of C diff in which she completed a 21-day course of vancomycin around the end of October. The patient denies any fever, chills, or any nausea or vomiting. PAST MEDICAL HISTORY: Significant for hypertension, hyperlipidemia, migraine headache, C diff, and pulmonary embolism. PAST SURGICAL HISTORY: Previous benign breast biopsy, umbilical hernia repair, and oral surgery. SOCIAL HISTORY: Denies any tobacco, alcohol, or illicit drug use. FAMILY HISTORY: Mother diagnosed with breast cancer at age 48. Brother diagnosed with colon cancer at age 58. REVIEW OF SYSTEMS: As indicated in the HPI. PHYSICAL EXAMINATION: VITAL SIGNS: Her blood pressure was 78/54, pulse 105, temperature is 97.6. GENERAL: She is alert and oriented x3. No acute distress. She does appear weak and frail. LUNGS: Clear to auscultation bilaterally. HEART: Regular rate and rhythm. ABDOMEN: Soft, nontender, and distended. EXTREMITIES: Bilateral lower extremities with no swelling. Pulses +2. ASSESSMENT AND PLAN: In summary, this is a 71-year-old female, who is diagnosed with end- stage primary peritoneal carcinoma, receiving IV chemotherapy with former dose-dense Taxol and carboplatin. The patient now with weakness, hypotension, and diarrhea. We will admit the patient. Obtain a stool sample to check for recurrence of her C diff. Also give an IV fluid bolus, and the patient was found to be neutropenic in our office with an ANC of 700. We will also start on Neupogen. Further recommendations to follow. The above tests are completed. EVERARDO/MARSHA History And Physical [address] [address] NAME: SUSY WALKER : 49 STATUS : ADM IN PAT#: [id number] AGE: 71 ADM/REG DATE : 11/13/16 MR#: [id number] REPORT SERV DATE: 11/13/16 DICTATED BY: EVE GARCIA DATE: 11/13/16 REPORT STATUS : Draft TRANSCRIBED BY: MARSHA DATE: 11/13/16 Eve Garcia NP / [id number] CC: Alejandra Prieto M.D.
[~2016-11-13 14:02] MED LIST changes: +ANTIBIOTIC; +T PO; +[UNRECOGNIZED DRUG - OTHER] PO
[2016-11-13] MEDS ORDERED: *UNABLE1 (15:31)
[2016-11-13 15:37] LABS: HEMATOCRIT 34.6 % (36.0-48.0); HEMOGLOBIN 11.7 g/dL (12.0-16.0); MEAN CORPUS HGB CONC 33.8 g/dL (32.0-36.0); MEAN CORPUSCULAR HEMOGLOB 28.7 pg (26.0-34.0); MEAN CORPUSCULAR VOLUME 84.8 fL (80-100); MEAN PLATELET VOLUME 9.3 fL (9.2-13.0); PLATELET COUNT 187 10/3/uL (150-400); RBC DISTRIBUTION WIDTH 17.9 % (12.0-16.0); RED CELL COUNT 4.08 10/6/uL (4.0-5.6)
[2016-11-13 15:51] LABS: A/G RATIO 0.6 (0.7-1.9); ALBUMIN 1.9 G/DL (3.5-5.0); CALCIUM, SERUM 8.3 MG/DL (8.5-10.4); CHLORIDE, SERUM 104 MMOL/L (96-112); CO2 (CARBON DIOXIDE) 28 MMOL/L (24-34); CREATININE 0.69 MG/DL (0.55-1.02); GFR AFRICAN AMERICAN 103 ML/MIN (>=60); GFR NON AFRICAN AMERICAN 89 ML/MIN (>=60); GLOBULIN 3.3 G/DL (2.5-4.1); GLUCOSE, SERUM 92 MG/DL (60-99); POTASSIUM, SERUM 3.8 MMOL/L (3.5-5.3); SGOT(AST) 47 U/L (5-40); SGPT(ALT) 60 U/L (5-65); SODIUM, SERUM 140 MMOL/L (135-148); TOTAL BILIRUBIN 0.3 MG/DL (0-1.2); TOTAL PROTEIN 5.2 G/DL (6.0-8.5)
[2016-11-13 15:53] LABS: MANUAL DIFF YES %; WHITE BLOOD CELLS 2.1 10/3/uL (4.5-10.5)
[2016-11-13 15:55] LABS: ALKALINE PHOSPHATASE 154 U/L (45-117); BUN (BLOOD UREA NITROGEN) 35 MG/DL (6-23)
[2016-11-13 16:11] LABS: BAND NEUTROPHILS 1 %; LYMPHOCYTES 54 %; LYMPHOCYTES ABSOLUTE (CALC) 1.13 10/3/uL (0.67-4.30); MONOCYTES 2 %; MONOCYTES ABSOLUTE (CALC) 0.04 10/3/uL (0.21-1.20); NEUTROPHILS ABSOLUTE (CALC) 0.92 10/3/uL (2.02-8.40); SEGMENTED NEUTROPHIL (0) 43 %; TOTAL NUCLEATED CELLS 100
[2016-11-13 16:12] LABS: ANISOCYTOSIS 1+ (5-10/OIF) (0-5/OIF); MACROCYTES 1+ (5-10/OIF) (0-5/OIF); PLATELET ESTIMATE ADQ (ADEQUATE); SCHISTOCYTES FEW (3-10/OIF)
[2016-11-13 16:13] LABS: OVALOCYTES 1+ (3-10/OIF) (0-2/OIF)
[2016-11-13 16:14] LABS: HELMET CELLS FEW (3-10/OIF)
[2016-11-13] MEDS ORDERED: LOVENOX80 SC (22:38)
[2016-11-13] MEDS ORDERED: ZOFRAN8 PO (22:39)
[2016-11-13] MEDS ORDERED: DEX4 PO (22:41)
[2016-11-13] MEDS ORDERED: CHEMOTHERAPY IV (22:42)
[2016-11-13] MEDS ORDERED: VITAMIN B PO (22:42)
[2016-11-13] MEDS ORDERED: COMP10B PO (22:42)
[2016-11-13] MEDS ORDERED: TYLENOL PO (22:43)
[2016-11-13] MEDS ORDERED: PRILO PO (22:43)
[2016-11-13] MEDS ORDERED: TUMS E-X750 M2 PO (22:43)
[2016-11-13] MEDS ORDERED: ZOCOR40 PO (22:44)
[2016-11-13] MEDS ORDERED: DIOVAN HCT320 MG/25 PO (22:44)
[2016-11-13] MEDS ORDERED: ZOMIG 5MG PO (22:45)
[2016-11-14 06:14] LABS: HEMATOCRIT 29.4 % (36.0-48.0); HEMOGLOBIN 10.2 g/dL (12.0-16.0); MEAN CORPUS HGB CONC 34.7 g/dL (32.0-36.0); MEAN CORPUSCULAR HEMOGLOB 29.6 pg (26.0-34.0); MEAN CORPUSCULAR VOLUME 85.2 fL (80-100); MEAN PLATELET VOLUME 8.9 fL (9.2-13.0); PLATELET COUNT 100 10/3/uL (150-400); RBC DISTRIBUTION WIDTH 18.1 % (12.0-16.0); RED CELL COUNT 3.45 10/6/uL (4.0-5.6); WHITE BLOOD CELLS 2.3 10/3/uL (4.5-10.5)
[2016-11-14 06:18] LABS: MANUAL DIFF YES %
[2016-11-14 06:46] LABS: A/G RATIO 0.5 (0.7-1.9); ALBUMIN 1.6 G/DL (3.5-5.0); BUN (BLOOD UREA NITROGEN) 36 MG/DL (6-23); CALCIUM, SERUM 7.7 MG/DL (8.5-10.4); CHLORIDE, SERUM 109 MMOL/L (96-112); CO2 (CARBON DIOXIDE) 24 MMOL/L (24-34); CREATININE 0.52 MG/DL (0.55-1.02); GFR AFRICAN AMERICAN 113 ML/MIN (>=60); GFR NON AFRICAN AMERICAN 97 ML/MIN (>=60); GLUCOSE, SERUM 88 MG/DL (60-99); POTASSIUM, SERUM 3.5 MMOL/L (3.5-5.3); SGOT(AST) 32 U/L (5-40); SGPT(ALT) 50 U/L (5-65); SODIUM, SERUM 143 MMOL/L (135-148); TOTAL BILIRUBIN 0.2 MG/DL (0-1.2); TOTAL PROTEIN 4.6 G/DL (6.0-8.5)
[2016-11-14 06:47] LABS: ALKALINE PHOSPHATASE 131 U/L (45-117)
[2016-11-14 08:09] LABS: ANISOCYTOSIS 1+ (5-10/OIF) (0-5/OIF); BAND NEUTROPHILS 20 %; LYMPHOCYTES 57 %; LYMPHOCYTES ABSOLUTE (CALC) 1.31 10/3/uL (0.67-4.30); MONOCYTES 3 %; MONOCYTES ABSOLUTE (CALC) 0.07 10/3/uL (0.21-1.20); NEUTROPHILS ABSOLUTE (CALC) 0.92 10/3/uL (2.02-8.40); PLATELET ESTIMATE DEC (ADEQUATE); SEGMENTED NEUTROPHIL (0) 20 %; TOTAL NUCLEATED CELLS 100
[2016-11-14 08:10] LABS: MICROCYTES 1+ (5-10/OIF) (0-5/OIF)
[2016-11-15 04:16] LABS: HEMOGLOBIN 11.2 g/dL (12.0-16.0); MEAN CORPUSCULAR HEMOGLOB 28.4 pg (26.0-34.0); MEAN CORPUSCULAR VOLUME 85.8 fL (80-100); MEAN PLATELET VOLUME 9.7 fL (9.2-13.0); PLATELET COUNT 95 10/3/uL (150-400); RBC DISTRIBUTION WIDTH 17.8 % (12.0-16.0); RED CELL COUNT 3.95 10/6/uL (4.0-5.6)
[2016-11-15 04:17] LABS: HEMATOCRIT 33.9 % (36.0-48.0); MANUAL DIFF YES %; WHITE BLOOD CELLS 3.5 10/3/uL (4.5-10.5)
[2016-11-15 04:32] LABS: A/G RATIO 0.5 (0.7-1.9); ALBUMIN 1.8 G/DL (3.5-5.0); CALCIUM, SERUM 7.6 MG/DL (8.5-10.4); CHLORIDE, SERUM 106 MMOL/L (96-112); CO2 (CARBON DIOXIDE) 25 MMOL/L (24-34); GFR AFRICAN AMERICAN 108 ML/MIN (>=60); GFR NON AFRICAN AMERICAN 93 ML/MIN (>=60); GLOBULIN 3.4 G/DL (2.5-4.1); GLUCOSE, SERUM 94 MG/DL (60-99); SGOT(AST) 38 U/L (5-40); SGPT(ALT) 59 U/L (5-65); SODIUM, SERUM 139 MMOL/L (135-148); TOTAL BILIRUBIN 0.2 MG/DL (0-1.2); TOTAL PROTEIN 5.2 G/DL (6.0-8.5)
[2016-11-15 04:39] LABS: ALKALINE PHOSPHATASE 177 U/L (45-117); BUN (BLOOD UREA NITROGEN) 28 MG/DL (6-23); POTASSIUM, SERUM 2.9 MMOL/L (3.5-5.3)
[2016-11-15 05:22] LABS: ANISOCYTOSIS 1+ (5-10/OIF) (0-5/OIF); BAND NEUTROPHILS 21 %; IMMATURE GRANS ABSOLUTE (CALC) 0.04 10/3/uL (0.0-0.11); LYMPHOCYTES 44 %; LYMPHOCYTES ABSOLUTE (CALC) 1.54 10/3/uL (0.67-4.30); METAMYELOCYTES 1 %; MONOCYTES 2 %; MONOCYTES ABSOLUTE (CALC) 0.07 10/3/uL (0.21-1.20); NEUTROPHILS ABSOLUTE (CALC) 1.86 10/3/uL (2.02-8.40); PLATELET ESTIMATE DEC (ADEQUATE); SEGMENTED NEUTROPHIL (0) 32 %; TOTAL NUCLEATED CELLS 100
[2016-11-16 04:33] LABS: HEMOGLOBIN 10.4 g/dL (12.0-16.0); MEAN CORPUSCULAR HEMOGLOB 29.5 pg (26.0-34.0); MEAN CORPUSCULAR VOLUME 84.4 fL (80-100); MEAN PLATELET VOLUME 9.6 fL (9.2-13.0); RBC DISTRIBUTION WIDTH 17.9 % (12.0-16.0); RED CELL COUNT 3.53 10/6/uL (4.0-5.6); WHITE BLOOD CELLS 2.9 10/3/uL (4.5-10.5)
[2016-11-16 04:36] LABS: HEMATOCRIT 29.8 % (36.0-48.0); MANUAL DIFF YES %; MEAN CORPUS HGB CONC 34.9 g/dL (32.0-36.0); PLATELET COUNT 56 10/3/uL (150-400)
[2016-11-16 04:37] LABS: PARTIAL THROMBO TIME 31.3 SEC (22.5-37.2); PROTIME (NOT ORD) 12.7 SEC (12.0-14.5)
[2016-11-16 04:48] LABS: A/G RATIO 0.5 (0.7-1.9); ALBUMIN 1.7 G/DL (3.5-5.0); BUN (BLOOD UREA NITROGEN) 25 MG/DL (6-23); CALCIUM, SERUM 7.9 MG/DL (8.5-10.4); CHLORIDE, SERUM 112 MMOL/L (96-112); CO2 (CARBON DIOXIDE) 22 MMOL/L (24-34); CREATININE 0.43 MG/DL (0.55-1.02); GFR AFRICAN AMERICAN 120 ML/MIN (>=60); GFR NON AFRICAN AMERICAN 104 ML/MIN (>=60); GLOBULIN 3.1 G/DL (2.5-4.1); GLUCOSE, SERUM 86 MG/DL (60-99); POTASSIUM, SERUM 3.3 MMOL/L (3.5-5.3); SGOT(AST) 29 U/L (5-40); SGPT(ALT) 48 U/L (5-65); SODIUM, SERUM 144 MMOL/L (135-148); TOTAL BILIRUBIN 0.1 MG/DL (0-1.2); TOTAL PROTEIN 4.8 G/DL (6.0-8.5)
[2016-11-16 04:49] LABS: ALKALINE PHOSPHATASE 162 U/L (45-117)
[2016-11-16 05:35] LABS: BAND NEUTROPHILS 8 %; LYMPHOCYTES 46 %; LYMPHOCYTES ABSOLUTE (CALC) 1.33 10/3/uL (0.67-4.30); MONOCYTES 4 %; MONOCYTES ABSOLUTE (CALC) 0.12 10/3/uL (0.21-1.20); NEUTROPHILS ABSOLUTE (CALC) 1.45 10/3/uL (2.02-8.40); SEGMENTED NEUTROPHIL (0) 42 %; TOTAL NUCLEATED CELLS 100
[2016-11-16 05:36] LABS: ANISOCYTOSIS 1+ (5-10/OIF) (0-5/OIF); PLATELET ESTIMATE DEC (ADEQUATE); SPHEROCYTES OCC (0-2/OIF)
[2016-11-17 06:47] LABS: HEMATOCRIT 28.3 % (36.0-48.0); HEMOGLOBIN 9.7 g/dL (12.0-16.0); MEAN CORPUS HGB CONC 34.3 g/dL (32.0-36.0); MEAN CORPUSCULAR VOLUME 84.5 fL (80-100); MEAN PLATELET VOLUME 9.5 fL (9.2-13.0); PLATELET COUNT 41 10/3/uL (150-400); RBC DISTRIBUTION WIDTH 17.8 % (12.0-16.0); RED CELL COUNT 3.35 10/6/uL (4.0-5.6); WHITE BLOOD CELLS 5.1 10/3/uL (4.5-10.5)
[2016-11-17 06:48] LABS: MANUAL DIFF YES %
[2016-11-17 07:06] LABS: A/G RATIO 0.6 (0.7-1.9); ALBUMIN 1.4 G/DL (3.5-5.0); ALKALINE PHOSPHATASE 126 U/L (45-117); BUN (BLOOD UREA NITROGEN) 20 MG/DL (6-23); CALCIUM, SERUM 7.5 MG/DL (8.5-10.4); CHLORIDE, SERUM 113 MMOL/L (96-112); CO2 (CARBON DIOXIDE) 27 MMOL/L (24-34); GFR AFRICAN AMERICAN 123 ML/MIN (>=60); GFR NON AFRICAN AMERICAN 106 ML/MIN (>=60); GLOBULIN 2.4 G/DL (2.5-4.1); GLUCOSE, SERUM 87 MG/DL (60-99); POTASSIUM, SERUM 3.2 MMOL/L (3.5-5.3); SGOT(AST) 18 U/L (5-40); SGPT(ALT) 33 U/L (5-65); SODIUM, SERUM 144 MMOL/L (135-148); TOTAL BILIRUBIN 0.2 MG/DL (0-1.2); TOTAL PROTEIN 3.8 G/DL (6.0-8.5)
[2016-11-17 07:22] LABS: SEGMENTED NEUTROPHIL (0) 34 %; TOTAL NUCLEATED CELLS 100
[2016-11-17 07:23] LABS: ANISOCYTOSIS 1+ (5-10/OIF) (0-5/OIF); BAND NEUTROPHILS 27 %; IMMATURE GRANS ABSOLUTE (CALC) 0.26 10/3/uL (0.0-0.11); LYMPHOCYTES 24 %; LYMPHOCYTES ABSOLUTE (CALC) 1.22 10/3/uL (0.67-4.30); METAMYELOCYTES 5 %; MONOCYTES 10 %; MONOCYTES ABSOLUTE (CALC) 0.51 10/3/uL (0.21-1.20); NEUTROPHILS ABSOLUTE (CALC) 3.11 10/3/uL (2.02-8.40); PLATELET ESTIMATE DEC (ADEQUATE); TOXIC GRANULATION 1+
[2016-12-14] MEDS ORDERED: ZOCOR40 PO (02:18)
[2016-12-14] MEDS ORDERED: LOVENOX80 SC (02:18)
[2016-12-16] MEDS ORDERED: ZITHROMAX500 MG PO (16:52)
[2016-12-16] MEDS ORDERED: LEVAQUIN750 MG PO (16:53)
[2017-01-17] MEDS ORDERED: LOVENOX80 SC (22:05)
[2017-01-17] MEDS ORDERED: COMP10B PO (22:05)
[2017-01-17] MEDS ORDERED: PROBIOTIC PO (22:07)
[2017-01-17] MEDS ORDERED: ZOFRANODT8 PO (22:07)
[2017-01-17] MEDS ORDERED: VITAMIN B-12 PO (22:08)
[2017-01-17] MEDS ORDERED: ACET500CAP PO (22:09)
[2017-01-17] MEDS ORDERED: SENTAB PO (22:10)
[2017-01-17] MEDS ORDERED: TUMS E-X750 M2 PO (22:11)
[2017-01-17] MEDS ORDERED: CHEMOTHERAPY IV (22:12)
[2017-01-19] MEDS ORDERED: LOP25 PO (14:18)
[2017-01-20] MEDS ORDERED: ACET500CAP PO (22:12)
[2017-01-20] MEDS ORDERED: LOVENOX80 SC (22:13)
[2017-01-20] MEDS ORDERED: LOP25 PO (22:13)
[2017-01-20] MEDS ORDERED: TUMS E-X750 M2 PO (22:13)
[2017-01-20] MEDS ORDERED: COMP10B PO (22:14)
[2017-01-20] MEDS ORDERED: ZOFRANODT8 PO/SL (22:14)
[2017-01-20] MEDS ORDERED: SENTAB PO (22:15)
[2017-01-20] MEDS ORDERED: VITAMIN B-12 OTC PO (22:16)
[2017-01-20] MEDS ORDERED: PROBIOTIC PO (22:16)
[2017-01-20] MEDS ORDERED: CHEMOTHERAPY IV (22:17)
== END 2016-11-17 09:45 | disposition home or self-care (01) | DRG 392 ==
LOC: 4EA 14:02
PROVIDERS: Obstetrics & Gynecology Gynecologic Oncology; Radiology Diagnostic Radiology
PROC: 0W9G3ZZ Drainage of Peritoneal Cavity, Percutaneous Approach (ICD-10-PCS; principal; 2016-11-16)
DX: R19.7 Diarrhea, unspecified (principal); D70.9 Neutropenia, unspecified; C48.1 Malignant neoplasm of specified parts of peritoneum; I10 Essential (primary) hypertension; E78.5 Hyperlipidemia, unspecified
CPT/HCPCS: 36598; 49083; 74177; 80053; 85025; 85610; 85730; 87493; 87493-59; A9270-GY; J1447; J2405; J2997; Q9967

== ENCOUNTER 2016-11-22 11:55 | Inpatient (IN) | payer MEDICARE, OTHER ==
--- NOTE | ~2016-11-22 | HP ---
History And Physical [address] [place]. [address] NAME: SUSY WALKER : 49 STATUS : DIS IN PAT#: [id number] AGE: 71 ADM/REG DATE : 11/23/16 MR#: [id number] REPORT SERV DATE: 11/24/16 DICTATED BY: EVE GARCIA DATE: 11/24/16 REPORT STATUS : Draft TRANSCRIBED BY: MODL DATE: 11/24/16 DATE OF ADMISSION: 11/22/2016 HISTORY OF PRESENT ILLNESS: Ms. Walker is a 71-year-old female, who was diagnosed with primary peritoneal carcinoma III in 09/2016. She has been receiving IV chemotherapy since that time. She is receiving dose dense Taxol and carboplatin with her last dose being cycle 2B on 11/09/2016. Her treatment thus far has been complicated with a diagnosis of pulmonary embolism and C diff. The patient called on-call physician with complaints of increasing abdominal discomfort and distention, weakness, fatigue, nausea, and decreased appetite. The patient was recently discharged from [facility] on 11/17/2016. States she was feeling well and then starting Wednesday evening, she began having worsening symptoms. PAST MEDICAL HISTORY: Significant for hypertension, hyperlipidemia, migraine headaches, C diff, and pulmonary embolism. PAST SURGICAL HISTORY: Previous benign breast biopsy, umbilical hernia repair, and oral surgery. SOCIAL HISTORY: Denies any tobacco, alcohol, or illicit drug use. FAMILY HISTORY: Mother diagnosed with breast cancer at age 48. Brother diagnosed with colon cancer at age 58. REVIEW OF SYSTEMS: As indicated in HPI. PHYSICAL EXAMINATION: GENERAL: She is alert and oriented x3, in no acute distress. She does appear weak and frail. LUNGS: Clear to auscultation bilaterally. HEART: Regular rate and rhythm. ABDOMEN: Soft, nontender, and is distended. EXTREMITIES: Bilateral lower extremities with no swelling and pulses +2. ASSESSMENT AND PLAN: In summary, this is a 71-year-old female, who was diagnosed with primary peritoneal carcinoma, receiving IV chemotherapy. She now has recurrent abdominal distention and discomfort. We will set up for ultrasound-guided paracentesis. Discussed the patient's current chemotherapy and we will be changing her chemotherapy regimen to topotecan. We will try to give her her first dose inhouse after her paracentesis. VAB/MAIKL Eve Garcia NP History And Physical [address] [address] NAME: SUSY WALKER : 49 STATUS : DIS IN PAT#: [id number] AGE: 71 ADM/REG DATE : 11/23/16 MR#: [id number] REPORT SERV DATE: 11/24/16 DICTATED BY: EVE GARCIA DATE: 11/24/16 REPORT STATUS : Draft TRANSCRIBED BY: MODL DATE: 11/24/16 / [id number] CC: MD Willi Geiger M.D.
[~2016-11-22 11:55] MED LIST changes: +*UNABLE1; +CHEMOTHERAPY IV; +DEX4 PO; +PRILO PO; +TYLENOL PO; +VITAMIN B PO
[2016-11-23 02:14] LABS: HEMATOCRIT 30.9 % (36.0-48.0); HEMOGLOBIN 10.5 g/dL (12.0-16.0); MEAN CORPUSCULAR HEMOGLOB 28.5 pg (26.0-34.0); MEAN CORPUSCULAR VOLUME 83.7 fL (80-100); MEAN PLATELET VOLUME 9.5 fL (9.2-13.0); RBC DISTRIBUTION WIDTH 18.8 % (12.0-16.0); RED CELL COUNT 3.69 10/6/uL (4.0-5.6)
[2016-11-23 02:15] LABS: INTERNATIONAL NORMAL RATI 1.1 UNITS (-); PARTIAL THROMBO TIME 29.3 SEC (22.5-37.2); PROTIME (NOT ORD) 13.6 SEC (12.0-14.5)
[2016-11-23 02:21] LABS: CALCIUM, SERUM 8.4 MG/DL (8.5-10.4); CHLORIDE, SERUM 105 MMOL/L (96-112); CO2 (CARBON DIOXIDE) 30 MMOL/L (24-34); CREATININE 0.75 MG/DL (0.55-1.02); GFR AFRICAN AMERICAN 94 ML/MIN (>=60); GFR NON AFRICAN AMERICAN 81 ML/MIN (>=60); POTASSIUM, SERUM 3.8 MMOL/L (3.5-5.3); SODIUM, SERUM 145 MMOL/L (135-148)
[2016-11-23 02:22] LABS: BUN (BLOOD UREA NITROGEN) 34 MG/DL (6-23); GLUCOSE, SERUM 134 MG/DL (60-99)
[2016-11-23 02:29] LABS: ANISOCYTOSIS 1+ (5-10/OIF) (0-5/OIF); BAND NEUTROPHILS 20 %; LYMPHOCYTES 5 %; METAMYELOCYTES 6 %; MYELOCYTES 1 %; PLATELET ESTIMATE ADQ (ADEQUATE); SEGMENTED NEUTROPHIL (0) 68 %; TOTAL NUCLEATED CELLS 100; TOXIC GRANULATION 1+
[2016-11-23 02:32] LABS: PLATELET COUNT 366 10/3/uL (150-400); WHITE BLOOD CELLS 24.1 10/3/uL (4.5-10.5)
[2016-11-23 02:33] LABS: MANUAL DIFF YES %
[2016-11-23] MEDS ORDERED: T PO (08:09)
[2016-11-23 10:33] LABS: ALBUMIN 1.3 G/DL (3.5-5.0); TOTAL PROTEIN 4.2 G/DL (6.0-8.5)
[2016-11-23 11:16] LABS: INTERNATIONAL NORMAL RATI 1.1 UNITS (-); PARTIAL THROMBO TIME 26.8 SEC (22.5-37.2); PROTIME (NOT ORD) 13.8 SEC (12.0-14.5)
[2016-11-23 14:07] LABS: CA 125 II 7041.2 U/ML (< 35.0)
[2016-11-23 14:22] LABS: BUN (BLOOD UREA NITROGEN) 33 MG/DL (6-23); CALCIUM, SERUM 8.5 MG/DL (8.5-10.4); CHLORIDE, SERUM 107 MMOL/L (96-112); CO2 (CARBON DIOXIDE) 31 MMOL/L (24-34); CREATININE 0.55 MG/DL (0.55-1.02); GFR AFRICAN AMERICAN 111 ML/MIN (>=60); GFR NON AFRICAN AMERICAN 96 ML/MIN (>=60); GLUCOSE, SERUM 84 MG/DL (60-99); POTASSIUM, SERUM 3.8 MMOL/L (3.5-5.3); SODIUM, SERUM 146 MMOL/L (135-148)
[2016-11-23 14:25] LABS: HEMATOCRIT 29.7 % (36.0-48.0); HEMOGLOBIN 9.8 g/dL (12.0-16.0); MEAN CORPUSCULAR HEMOGLOB 28.2 pg (26.0-34.0); MEAN CORPUSCULAR VOLUME 85.3 fL (80-100); MEAN PLATELET VOLUME 10.1 fL (9.2-13.0); PLATELET COUNT 354 10/3/uL (150-400); RED CELL COUNT 3.48 10/6/uL (4.0-5.6); WHITE BLOOD CELLS 22.3 10/3/uL (4.5-10.5)
[2016-11-23 14:27] LABS: MANUAL DIFF YES %
[2016-11-23 15:48] LABS: BAND NEUTROPHILS 14 %; LYMPHOCYTES 3 %; METAMYELOCYTES 4 %; MONOCYTES 6 %; SEGMENTED NEUTROPHIL (0) 73 %; TOTAL NUCLEATED CELLS 100
[2016-11-23 15:55] LABS: ANISOCYTOSIS 1+ (5-10/OIF) (0-5/OIF)
[2016-11-23 18:00] LABS: ASCORBIC ACID (UR NOT ORDER) NEG (NEG); BILIRUBIN, URINE NEGATIVE (NEG); KETONE, URINE NEGATIVE (NEG); WBC (NOT ORDERED) (RFLEX) 16 (0-5)
[2016-11-23 18:04] LABS: LEUKOCYTE ESTERASE(NOT OR TRACE (NEG)
[2016-11-24 06:17] LABS: INTERNATIONAL NORMAL RATI 1.2 UNITS (-); PARTIAL THROMBO TIME 32.4 SEC (22.5-37.2)
[2016-11-24 06:21] LABS: BUN (BLOOD UREA NITROGEN) 33 MG/DL (6-23); CALCIUM, SERUM 7.6 MG/DL (8.5-10.4); CHLORIDE, SERUM 108 MMOL/L (96-112); CO2 (CARBON DIOXIDE) 29 MMOL/L (24-34); CREATININE 0.67 MG/DL (0.55-1.02); GFR AFRICAN AMERICAN 104 ML/MIN (>=60); GFR NON AFRICAN AMERICAN 90 ML/MIN (>=60); POTASSIUM, SERUM 4.3 MMOL/L (3.5-5.3); SODIUM, SERUM 144 MMOL/L (135-148)
[2016-11-24 06:22] LABS: GLUCOSE, SERUM 123 MG/DL (60-99)
[2016-11-24 07:27] LABS: HEMATOCRIT 29.9 % (36.0-48.0); HEMOGLOBIN 10.2 g/dL (12.0-16.0); MANUAL DIFF YES %; MEAN CORPUS HGB CONC 34.1 g/dL (32.0-36.0); MEAN CORPUSCULAR VOLUME 84.9 fL (80-100); MEAN PLATELET VOLUME 9.5 fL (9.2-13.0); PLATELET COUNT 418 10/3/uL (150-400); RED CELL COUNT 3.52 10/6/uL (4.0-5.6); WHITE BLOOD CELLS 18.2 10/3/uL (4.5-10.5)
[2016-11-24 08:00] LABS: ANISOCYTOSIS 1+ (5-10/OIF) (0-5/OIF); BAND NEUTROPHILS 6 %; LYMPHOCYTES 3 %; LYMPHOCYTES ABSOLUTE (CALC) 0.55 10/3/uL (0.67-4.30); MONOCYTES 6 %; MONOCYTES ABSOLUTE (CALC) 1.09 10/3/uL (0.21-1.20); NEUTROPHILS ABSOLUTE (CALC) 16.56 10/3/uL (2.02-8.40); PLATELET ESTIMATE SLT INC (ADEQUATE); SEGMENTED NEUTROPHIL (0) 85 %; TOTAL NUCLEATED CELLS 100
[2016-12-14] MEDS ORDERED: LOVENOX80 SC (02:18)
[2016-12-14] MEDS ORDERED: ZOCOR40 PO (02:18)
[2016-12-16] MEDS ORDERED: ZITHROMAX500 MG PO (16:52)
[2016-12-16] MEDS ORDERED: LEVAQUIN750 MG PO (16:53)
[2017-01-17] MEDS ORDERED: COMP10B PO (22:05)
[2017-01-17] MEDS ORDERED: LOVENOX80 SC (22:05)
[2017-01-17] MEDS ORDERED: ZOFRANODT8 PO (22:07)
[2017-01-17] MEDS ORDERED: PROBIOTIC PO (22:07)
[2017-01-17] MEDS ORDERED: VITAMIN B-12 PO (22:08)
[2017-01-17] MEDS ORDERED: ACET500CAP PO (22:09)
[2017-01-17] MEDS ORDERED: SENTAB PO (22:10)
[2017-01-17] MEDS ORDERED: TUMS E-X750 M2 PO (22:11)
[2017-01-17] MEDS ORDERED: CHEMOTHERAPY IV (22:12)
[2017-01-19] MEDS ORDERED: LOP25 PO (14:18)
[2017-01-20] MEDS ORDERED: ACET500CAP PO (22:12)
[2017-01-20] MEDS ORDERED: LOP25 PO (22:13)
[2017-01-20] MEDS ORDERED: LOVENOX80 SC (22:13)
[2017-01-20] MEDS ORDERED: TUMS E-X750 M2 PO (22:13)
[2017-01-20] MEDS ORDERED: ZOFRANODT8 PO/SL (22:14)
[2017-01-20] MEDS ORDERED: COMP10B PO (22:14)
[2017-01-20] MEDS ORDERED: SENTAB PO (22:15)
[2017-01-20] MEDS ORDERED: PROBIOTIC PO (22:16)
[2017-01-20] MEDS ORDERED: VITAMIN B-12 OTC PO (22:16)
[2017-01-20] MEDS ORDERED: CHEMOTHERAPY IV (22:17)
== END 2016-11-24 11:34 | disposition home or self-care (01) | DRG 948 ==
LOC: 4EA 11:55
PROVIDERS: Obstetrics & Gynecology Gynecology; Radiology Diagnostic Radiology
PROC: 0W9G3ZZ Drainage of Peritoneal Cavity, Percutaneous Approach (ICD-10-PCS; principal; 2016-11-23)
PROC: 3E03305 Introduction of Other Antineoplastic into Peripheral Vein, Percutaneous Approach (ICD-10-PCS; 2016-11-23)
DX: R18.8 Other ascites (principal); C48.2 Malignant neoplasm of peritoneum, unspecified
CPT/HCPCS: 49083; 74020; 80048; 81001; 82040; 84155; 85025; 85049; 85610; 85730; 86304; 87040; A9270-GY; J1453; J2405; J9351